=== PATIENT | male | born 1990 | race Caucasian/White ===

== ENCOUNTER 2019-01-21 16:15 | Emergency (ER) | payer SELFPAY ==
[2019-01-21] MEDS: ACETAMINOPHEN 325 MG TAB PO (17:11)
[2019-01-21 17:38] LABS: ADD MAN DIFF? NO
[2019-01-21 17:45] LABS: BASOPHILS % 0.4 % (0.0-2.0); EOSINOPHILS # 0.1 10^3/ul (0.0-0.5); HEMATOCRIT 43.7 % (42.0-52.0); HEMOGLOBIN 14.6 g/dl (14.0-18.0); LYMPHOCYTES # 0.9 10^3/ul (0.8-2.9); LYMPHOCYTES % 7.8 % (15.0-51.0); MEAN CORPUSCULAR HEMOGLOBIN 28.8 pg (29.0-33.0); MEAN CORPUSCULAR HGB CONC 33.4 g/dl (32.0-37.0); MEAN CORPUSCULAR VOLUME 86.2 fl (82.0-101.0); MEAN PLATELET VOLUME 10.1 fl (7.4-10.4); MONOCYTE # 0.6 10^3/ul (0.3-0.9); MONOCYTES % 5.4 % (0.0-11.0); NEUTROPHIL # 9.5 10^3/ul (1.6-7.5); NEUTROPHILS % 84.5 % (39.0-77.0); PLATELET COUNT 209 10^3/UL (140-415); RED BLOOD COUNT 5.07 10^6/ul (4.70-6.10); RED CELL DISTRIBUTION WIDTH 12.5 % (11.5-14.5)
[2019-01-21 17:45] LABS: WHITE BLOOD COUNT 11.2 10^3/ul (4.8-10.8)
[2019-01-21] MEDS ORDERED: IODIXANOL LOCM 100 ML BTL (17:52)
[2019-01-21] MEDS ORDERED: SOD CHLORIDE 0.9% 100 ML (17:52)
[2019-01-21 18:02] LABS: ALANINE AMINOTRANSFERASE 48 IU/L (13-69); ALBUMIN 4.6 g/dl (3.3-4.9); ALKALINE PHOSPHATASE 96 IU/L (42-121); ANION GAP 9 (5-13); ASPARTATE AMINO TRANSFERASE 42 IU/L (15-46); BILIRUBIN,INDIRECT 0.2 mg/dl (0-1.1); BILIRUBIN,TOTAL 0.2 mg/dl (0.2-1.3); BLOOD UREA NITROGEN 12 mg/dl (7-20); CALCIUM 9.4 mg/dl (8.4-10.2); CARBON DIOXIDE 27 mmol/L (21-31); CHLORIDE 104 mmol/L (97-110); CREATININE 0.92 mg/dl (0.61-1.24); Estimated GFR > 60 mL/min (>60); GLUCOSE 109 mg/dl (70-220); POTASSIUM 4.3 mmol/L (3.5-5.1); SODIUM 140 mmol/L (135-144); TOTAL PROTEIN 7.6 g/dl (6.1-8.1)
[2019-01-21 18:04] LABS: PROTIME 12.3 Sec (11.9-14.9)
[2019-01-21 18:05] LABS: PARTIAL THROMBOPLASTIN TIME 25.5 Sec (23.0-35.0)
[2019-01-21] MEDS: morphine 4 MG/ML VIAL IV (18:45)
[2019-01-21] MEDS: ONDANSETRON 4 MG INJ IV (18:45)
[2019-01-21] MEDS: DIPHTH/TET/ACEL PERTUSS (ADULT) 0.5 ML VIAL IM* (20:21)
== END 2019-01-21 20:32 | disposition home or self-care (01) ==
LOC: E/R 20:32 → FTE 16:15
DX: S06.0X0A Concussion without loss of consciousness, initial encounter (principal); R40.2142 Coma scale, eyes open, spontaneous, at arrival to emergency department; R40.2362 Coma scale, best motor response, obeys commands, at arrival to emergency department; R40.2252 Coma scale, best verbal response, oriented, at arrival to emergency department; S01.81XA Laceration without foreign body of other part of head, initial encounter; S01.01XA Laceration without foreign body of scalp, initial encounter; R07.9 Chest pain, unspecified; W18.09XA Striking against other object with subsequent fall, initial encounter; Y92.89 Other specified places as the place of occurrence of the external cause; Z23 Encounter for immunization
CPT/HCPCS: 12004; 70450; 70486; 71045; 71260; 72125; 80048; 80076; 85025; 85610; 85730; 90471; 90715; 93005; 96374; 96375; 99285-25